=== PATIENT | female | born 1970 | race American Indian/Alaskan Native ===

== ENCOUNTER 2020-10-01 10:32 | Emergency (ER) | payer OTHER ==
[2020-10-01] MEDS ORDERED: SODIUM CHLORIDE 0.9% 1000 ML 1,000 ML IV ONE (11:02)
[2020-10-01] MEDS ORDERED: LIDOCAINE 2%/EPINEPHRINE 1:100,000 VIAL (20 ML) INFILTRATI ONE (11:09)
--- NOTE | 2020-10-01 11:12 | Emergency Department Report ---
ED General Adult HPI - General Chief complaint: Altered Mental Status Stated complaint: STROKE PUI?: No Time Seen by Provider: 10/01/20 10:48 Source: patient, EMS ( EMS documentation not available at time of chart dictati on ), RN notes reviewed Mode of arrival: Stretcher Limitations: Altered Mental Status, Physical Limitation - History of Present Illness Initial comments: The patient was evaluated in the emergency department for symptoms described in the history of present illness. He/she was evaluated in the context of the global COVID-19 pandemic, which necessitated consideration that the patient might be at risk for infection with the virus that causes COVID-19. Institutional protocols and algorithms that pertain to the evaluation of patients at risk for COVID-19 are in a state of rapid change based on information released by regulatory bodies including the CDC and federal and state organizations. These policies and algorithms were followed during the patient's care in the emergency department. Please note that these policies, procedures and recommendations changed on a rapid basis. During the entire history and physical examination, I am chaperoned by nurse NUNO DELGADO This is a 50-year-old female. She is brought to the hospital by emergency medical services. History entirely obtained from EMS. EMS verbally reports the patient presents today because of weakness. Her last known well time is over 48 hours ago, as per EMS, who reports this is the information received from the patient's family. The patient also reportedly has altered mental status, and right-sided weakness. As per review of a discharge summary/report from [facility], discharge diagnoses include ascites, peritonitis, fracture, pathologic of the humerus, hypoalbuminemia, edema of bilateral lower extremities, metastatic colon cancer, hereditary nonpolyposis colon cancer, h ypertension, anemia, biliary obstruction, pancreatic mass, abdominal pain, chronic, generalized, chronic nausea, constipation and sinus tachycardia. The patient is not accompanied by friends or family at this time for additional information or collateral information. The patient follows some commands. The patient is not able to tell me why she is here. The patient indicates that she is having abdominal pain. The patient follows commands. Because of her weakness and altered mental status, the patient is not able to describe the qualitative nature of her symptoms, exacerbating factors, relieving factors, aggravating factors, etc. -: days(s) Quality: other Consistency: other Improves with: other Worsens with: other Associated Symptoms: other - Related Data Allergies Allergy/AdvReac Type Severity Reaction Status Date / Time No Known Allergies Allergy Verified 10/01/20 12:02 ED Review of Systems ROS: Stated complaint: STROKE Other details as noted in HPI Comment: Unobtainable due to pts medical conditions ED Physical Exam - General Limitations: Altered Mental Status, Physical Limitation General appearance: obese, other (The patient is awake. The patient follows commands.) - Head Head exam: Present: atraumatic, normocephalic - Eye Eye exam: Present: normal appearance, EOMI - ENT ENT exam: Present: normal exam, mucous membranes moist, normal external ear exam - Neck Neck exam: Present: normal inspection, full ROM. Absent: tenderness, meningismus - Respiratory Respiratory exam: Present: decreased breath sounds. Absent: respiratory distress, wheezes, rales, rhonchi, stridor - Cardiovascular Cardiovascular Exam: Present: regular rate, normal rhythm, tachycardia, normal heart sounds. Absent: bradycardia, irregular rhythm, systolic murmur, diastolic murmur, rubs, gallop - GI/Abdominal GI/Abdominal exam: Present: soft, distended, tenderness, other (There is a jejunal drain noted. There is an ostomy noted on the epigastric region.). Abs ent: guarding, rebound, rigid, pulsatile mass - Rectal Rectal exam: Present: normal inspection, normal rectal tone, heme (-) stool, other (Chaperoned by NUNO DELGADO) - Extremities Exam Extremities exam: Present: normal inspection, pedal edema (3-4+ edema in the bilateral lower extremities), other (2+ pulses noted in the bilateral radial distributions. 1+ pulses appreciated in the bilateral dorsalis pedis distrib ution. Lower extremity pulse exam limited by gross edema) - Back Exam Back exam: Present: normal inspection. Absent: tenderness, CVA tenderness (R), CVA tenderness (L), paraspinal tenderness, vertebral tenderness - Neurological Exam Neurological exam: Present: altered (The patient is awake. The patient moves 4 extremities. There is no facial droop. Patient is minimally verbal.), other (Sensation is intact to light touch in 4 extremities. 4 out of 5 strength left arm, left leg. 3 out of 5 strength right arm, right leg.) - Skin Skin exam: Present: warm, dry, intact, normal color. Absent: rash ED Course Vital Signs 10/01/20 10/01/20 10/01/20 10:52 11:00 11:40 Temperature 98.7 F Pulse Rate 120 H 103 H Respiratory 12 9 L Rate Blood Pressure Blood Pressure 99/71 [Right] O2 Sat by Pulse 99 99 Oximetry 10/01/20 10/01/20 10/01/20 11:45 12:00 12:17 Temperature Pulse Rate 118 H 121 H Respiratory 7 L 8 L Rate Blood Pressure 98/65 107/66 107/66 Blood Pressure [Right] O2 Sat by Pulse 100 99 100 Oximetry 10/01/20 10/01/20 10/01/20 12:30 12:45 13:00 Temperature Pulse Rate 122 H 134 H 122 H Respiratory 7 L 15 8 L Rate Blood Pressure 112/71 107/66 111/68 Blood Pressure [Right] O2 Sat by Pulse 100 97 99 Oximetry 10/01/20 10/01/20 10/01/20 13:15 13:30 13:45 Temperature Pulse Rate 119 H 120 H 125 H Respiratory 7 L 7 L 14 Rate Blood Pressure 111/68 101/68 111/68 Blood Pressure [Right] O2 Sat by Pulse 100 99 100 Oximetry 10/01/20 10/01/20 10/01/20 14:00 14:15 14:30 Temperature Pulse Rate 128 H 122 H 124 H Respiratory 17 9 L 8 L Rate Blood Pressure 104/37 107/73 114/76 Blood Pressure [Right] O2 Sat by Pulse 100 100 100 Oximetry 10/01/20 10/01/20 10/01/20 14:45 15:00 15:15 Temperature Pulse Rate 125 H 122 H 124 H Respiratory 8 L 9 L 8 L Rate Blood Pressure 104/37 115/70 115/70 Blood Pressure [Right] O2 Sat by Pulse 99 99 100 Oximetry 10/01/20 10/01/20 10/01/20 15:30 15:45 16:00 Temperature Pulse Rate 126 H 127 H 126 H Respiratory 9 L 10 L 8 L Rate Blood Pressure 111/71 111/71 107/69 Blood Pressure [Right] O2 Sat by Pulse 100 98 100 Oximetry 10/01/20 10/01/20 10/01/20 16:15 16:30 16:45 Temperature Pulse Rate 127 H 125 H 125 H Respiratory 8 L 9 L 8 L Rate Blood Pressure 107/69 105/68 105/68 Blood Pressure [Right] O2 Sat by Pulse 100 100 100 Oximetry - Reevaluation(s) Reevaluation #1: 10/01/20 11:23 Differential diagnosis, including but not limited to: Bacteremia, viremia, pneumonia, urinary tract infection, peritonitis Assessment and plan: 50-year-old female with weakness, altered mental status, last known well time approximately 48 hours ago, tachycardic and hypotensive, with lower extremity edema, ascites, mild diffuse abdominal tenderness. We have requested patient's old medical records from [facility]. Family has given consent for this over the phone with the nurse, and I have emergently and administratively consented the patient for this as well. CT scan of the brain, abdomen pelvis will be obtained. Appropriate laboratory studies will be obtained. Registration is trying to ascertain if patient is a [facility] patient. We will reassess after initial diagnostics have resulted. Patient will require fluid resuscitation, but is also demonstrating evidence of gross lower extremity edema. Consider paracentesis if initial diagnostics are nondiagnostic. Reevaluation #2: 10/01/20 11:42 colon ca, winter colectomy, on chemo ( keytruda), biliary drain fell out and was replaced, known lower ext edema, biliARY stent, ascites, pathologic fracture of right humerus also has endo metrial cancer additional history as per Dr Odalis Keen of [facility] patient is a [facility] [place] patient [facility] to [facility] end of august Reevaluation #3: 10/01/20 12:47 Laboratory studies demonstrate hyponatremia, most likely hypovolemic hyponatremia. Anemia appreciated, may be anemia of chronic disease. Di fferential is pending. Patient also found to be hypokalemic. X-ray of the chest reviewed and appreciated. CT scan of the brain, abdomen pelvis pending. Urinalysis pending. Reevaluation #4: 10/01/20 13:35 CT scan of the brain shows no acute intracranial findings. Metastatic lesions in the bony structures versus lymphoma are suggested. CT scan abdomen pelvis demonstrates known biliary stent, known pancreatic mass, known ascites, and pathologic lesions in the bony anatomy. INR elevated, PT elevated, l therefore, relative contraindication to paracentesis. Contacted [facility] physician, Dr. Maribell Keen, coordinator, we discussed the patient's history, physical, imaging studies and laboratory studies. Agrees with plan to withhold paracentesis at this time. For continuity of care, patient will be transferred back to [facility], with Dr. Simona Rendon will be the accepting physician. If however, there is a delay in acquiring a bed, the aforementioned physician, Dr. Keen, will authorize the patient to be temporarily admitted to this facility. 10/01/20 13:36 Reevaluation #5: 10/01/20 16:14 Vital signs are essentially unchanged. Patient awake, and will occasionally follow commands. She is protecting her airway. I have recontacted Dr. Keen, and the [facility] hub. She states they are trying to arrange a bed at [facility]. I have requested that the [facility] team expedite this process, so that the patient may continue continuity of care. I have also offered to admit the patient to this hospital, to our medical service, pending their bed availability, however, [facility] declines at this time, they will get back to me with a follow-up by 6:00 PM today. ED Medical Decision Making - Lab Data Result diagrams: 10/01/20 11:42 10/01/20 11:42 Vital Signs 10/01/20 10:52 Pulse Rate 120 H Respiratory 12 Rate Blood Pressure 99/71 [Right] O2 Sat by Pulse 99 Oximetry Rectal temperature was 98.6 degrees. - EKG Data EKG shows normal: sinus rhythm Rate: tachycardia - EKG Data When compared to previous EKG there are: previous EKG unavailable 10/01/20 12:29 Sinus rhythm, tachycardia, 120 bpm, normal axis, QTC 436 ms, low voltage, the EKG is abnormal. There is no prior for comparison. This EKG is not a STEMI. - Radiology Data Radiology results: report reviewed, image reviewed Print Report Referring Physician: JAKOB BAIRES Patient Name: GAURI SAHNI Date of : 1970 Sex: Female Report Date: 2020-10-01 Report Status: Finalized Findings [address] [address] XRay Report Signed Patient: GAURI SAHNI MR#: [id number] 3 : 1970 Acct:[id number] Age/Sex: 50 / F ADM Date: 10/01/20 Loc: ED Attending Dr: Ordering Physician: JAKOB BAIRES MD Date of Service: 10/01/20 Procedure(s): XR chest 1V ap Accession Number(s): [id number] cc: JAKOB BAIRES MD Fluoro Time In Minutes: CHEST 1 VIEW 10/01/2020 10:38 AM INDICATION / CLINICAL INFORMATION: Altered Mental Status. COMPARISON: None available. FINDINGS: SUPP ORT DEVICES: None. HEART / MEDIASTINUM: No significant abnormality. LUNGS / PLEURA: There are patchy bilateral pulmonary opacities. No pneumothorax. ADDITIONAL FINDINGS: There is an abnormal appearance of the proximal right humerus, with apparent destructive lesion in the proximal right humerus and associated periosteal reaction. IMPRESSION: 1. Patchy bilateral pulmonary opacities which may reflect developing infectious process. 2. Significantly abnormal appearance of the proximal right humerus concerning for possible bone lesion. Dedicated right humeral radiographs are recommended for further evaluation characterization. Signer Name: Luis Nickerson MD Signed: 10/01/2020 11:41 AM Workstation Name: [id number] Transcribed By: KERRI Dictated By: Luis Nickerson MD Electronically Authenticated By: Luis Nickerson MD Signed Date/Time: 10/01/20 1141 DD/ 1139 TD/TT: Report Referring Physician: JAKOB BAIRES Patient Name: GAURI SAHNI Date of : 1970 Sex: Female Report Date: 2020-10-01 Report Status: [place] [address] Cat Scan Report Signed Patient: GAURI SAHNI MR#: [id number] 3 : 1970 Acct:[id number] Age/Sex: 50 / F ADM Date: 10/01/20 Loc: ED Attending Dr: Ordering Physician: JAKOB BAIRES MD Date of Service: 10/01/20 Procedure(s): CT abdomen pelvis wo con Accession Number(s): [id number] cc: JAKOB BAIRES MD CT abdomen pelvis wo con INDICATION: abd pain ams distension, ascites. TECHNIQUE: All CT scans at this location are performed using CT dose reduction for ALARA by means of automated exposure control. COMPARISON: None available. FINDINGS: Moderate-sized left pleural effusion. No acute disease in the lung bases. Exam is technically suboptimal because of patient arm position, motion and lack of contrast. There is considerable ascites around the liver and spleen. Liver is small and probably cirrhotic. Gallbladder is filled with contrast. Biliary stent extends from the common duct into the duodenum. There also appears to be a stent in the duodenum. On this noncontrast exam, there appears to be a large, ill-defined mass involving the pancreatic head and adjacent structures, with dilatation of the pancreatic duct in the tail. Spleen is negative. Kidneys appear unremarkable, but there are thought to be bilateral adrenal masses, measuring approximately 3.7 cm on the left and as much as 6.5 cm on the right. The left adrenal mass is mostly solid. Right-sided mass contains areas of low attenuation, probably fat. There is abnormal soft tissue density in the left periaortic region, most likely adenopathy. Tissue definition is simply not adequate to evaluate for periportal adenopathy. Pelvis Extensive ascites. Bladder is mildly distended but otherwise negative. No definite pelvic adenopathy. A mixed lytic and destructive lesion involves the right posterior acetabulum, extending into the ischium. I see no additional skeletal lesions. IMPRESSION: 1. Large, ill-defined mass in the region of the pancreatic head and periportal region. 2. Biliary stent (and apparent duodenal stent) are in position. 3. Extensive ascites in the abdomen and pelvis. 4. Bilateral adrenal masses. 5. The presence of a biliary stent indicates there is considerable clinical information which is not available for interpretation of this exam. Signer Name: Hector Ivan MD Signed: 10/01/2020 12:56 PM Workstation Name: [id number] Transcribed By: TM Dictated By: Hector Ivan MD Electronically Authenticated By: Hector Ivan MD Signed Date/Time: 10/01/20 1256 DD/ 1243 TD/TT: Print Report Referring Physician: JAKOB BAIRES Patient Name: GAURI SAHNI Date of : 1970 Sex: Female Report Date: 2020-10-01 Report Status: Finalized Findings [facility] [address] [place] [address] Cat Scan Report Signed Patient: GAURI SAHNI MR#: [id number] 3 : 1970 Acct:[id number] Age/Sex: 50 / F ADM Date: 10/01/20 Loc: ED Attending Dr: Ordering Physician: JAKOB BAIRES MD Date of Service: 10/01/20 Procedure(s): CT head/brain wo con Accession Number(s): [id number] cc: JAKOB BAIRES MD NONENHANCED CT SCAN OF THE HEAD: INDICATION / CLINICAL INFORMATION: 50 years Female; Altered Mental Status. TECHNIQUE: Routine CT head without contrast. All CT scans at this location are performed using CT dose reduction for ALARA by means of automated exposure control. COMPARISON: None. FINDINGS: BRAIN / INTRACRANIAL CONTENTS: No acute hemorrhage, mass effect, midline shift, hydrocephalus, or acute, large territorial infarct. No chronic infarct or focal atrophy. Normal brain volume and ventricular/sulcal size for age. No significant white matter abnormality. CALVARIUM: Generalized expansion of the diploic space Sickle cell disease; 2 distinct calvarial infiltrative lesions along with the soft tissue thickening intracranially as well as extracranially; given the findings in the abdominal CT scan, these are metastatic lesions. Lymphoma is another possibility CRANIOCERVICAL JUNCTION: No significant abnormality. ORBITS: No significant abnormality of visualized orbits. SINUSES / MASTOIDS: No significant abnormality of the visualized paranasal sinuses or mastoid air cells. ADDITIONAL FINDINGS: None. IMPRESSION: Normal brain parenchyma 2 distinctly separate calvarial lesions; metastases; other consideration is lymphoma Signer Name: Cedric Monge MD Signed: 10/01/2020 12:57 PM Workstation Name: [id number] Transcribed By: BS Dictated By: Cderic Morton MD Electronically Authenticated By: Cedric Morton MD Signed Date/Time: 10/01/20 1257 DD/ 1242 TD/TT: Critical Care Time: Yes Critical care time in (mins) excluding proc time.: 35 Critical care attestation.: If time is entered above; I have spent that time in minutes in the direct care of this critically ill patient, excluding procedure time. ED Disposition Clinical Impression: Hyponatremia, Hypokalemia, Edema, Altered mental status, Hypoalbuminemia, Abdominal pain, Pathologic fracture of humerus, History of colon cancer [id number] Is pt being admited?: No Does the pt Need Aspirin: No Condition: Serious Referrals: PRIMARY CARE, [Primary Care Provider] - 3-5 Days
--- NOTE | 2020-10-01 11:45 | XRay Report ---
CHEST 1 VIEW 10/01/2020 10:38 AM INDICATION / CLINICAL INFORMATION: Altered Mental Status. COMPARISON: None available. FINDINGS: SUPPORT DEVICES: None. HEART / MEDIASTINUM: No significant abnormality. LUNGS / PLEURA: There are patchy bilateral pulmonary opacities. No pneumothorax. ADDITIONAL FINDINGS: There is an abnormal appearance of the proximal right humerus, with apparent kodi tructive lesion in the proximal right humerus and associated periosteal reaction. IMPRESSION: 1. Patchy bilateral pulmonary opacities which may reflect developing infectious process. 2. Significantly abnormal appearance of the proximal right humerus concerning for possible bone lesio n. Dedicated right humeral radiographs are recommended for further evaluation characterization. Signer Name: Luis Nickerson MD Signed: 10/01/2020 11:41 AM Workstation Name: [id number]
[2020-10-01] MEDS ORDERED: cefTRIAXone/NS 2 GM/100 ML 2 GM/100 ML BAG IV SCH (12:15)
[2020-10-01 12:28] LABS: Hematocrit 29.1 % (30.3-42.9); Hemoglobin 9.4 gm/dl (10.1-14.3); Mean Corpuscular HGB Conc 32 % (30-34); Mean Corpuscular Volume 79 fl (79-97); Platelet Count 415 K/mm3 (140-440); Red Cell Distribution Width 24.8 % (13.2-15.2)
[2020-10-01 12:43] LABS: Albumin 2.2 g/dL (3.9-5); Calcium 8.1 mg/dL (8.4-10.2)
[2020-10-01 12:50] LABS: INR 1.79 (0.87-1.13)
--- NOTE | 2020-10-01 13:01 | Cat Scan Report ---
CT abdomen pelvis wo con INDICATION: abd pain ams distension, ascites. TECHNIQUE: All CT scans at this location are performed using CT dose reduction for ALARA by means of automated e xposure control. COMPARISON: None available. FINDINGS: Moderate-sized left pleural effusion. No acute disease in the lung bases. Exam is technically suboptimal because of patient arm position, motion and lack of contrast. There is considerable ascites around the liver and spleen. Liver is small and probably cirrhotic. Gal lbladder is filled with contrast. Biliary stent extends from the common duct into the duodenum. There also appears to be a stent in the duodenum. On this noncontrast exam, there appears to be a large, i ll-defined mass involving the pancreatic head and adjacent structures, with dilatation of the pancrea tic duct in the tail. Spleen is negative. Kidneys appear unremarkable, but there are thought to be bilateral adrenal masses , measuring approximately 3.7 cm on the left and as much as 6.5 cm on the right. The left adrenal mas s is mostly solid. Right-sided mass contains areas of low attenuation, probably fat. There is abnorma l soft tissue density in the left periaortic region, most likely adenopathy. Tissue definition is sim ply not adequate to evaluate for periportal adenopathy. Pelvis Extensive ascites. Bladder is mildly distended but otherwise negative. No definite pelvic adenopathy. A mixed lytic and destructive lesion involves the right posterior acetabulum, extending into the isch ium. I see no additional skeletal lesions. IMPRESSION: 1. Large, ill-defined mass in the region of the pancreatic head and periportal region. 2. Biliary stent (and apparent duodenal stent) are in position. 3. Extensive ascites in the abdomen and pelvis. 4. Bilateral adrenal masses. 5. The presence of a biliary stent indicates there is considerable clinical information which is not available for interpretation of this exam. Signer Name: Hector Ivan MD Signed: 10/01/2020 12:56 PM Workstation Name: [id number]
--- NOTE | 2020-10-01 13:02 | Cat Scan Report ---
NONENHANCED CT SCAN OF THE HEAD: INDICATION / CLINICAL INFORMATION: 50 years Female; Altered Mental Status. TECHNIQUE: Routine CT head without contrast. All CT scans at this location are performed using CT dos e reduction for ALARA by means of automated exposure control. COMPARISON: None. FINDINGS: BRAIN / INTRACRANIAL CONTENTS: No acute hemorrhage, mass effect, midline shift, hydrocephalus, or acu te, large territorial infarct. No chronic infarct or focal atrophy. Normal brain volume and ventricul ar/sulcal size for age. No significant white matter abnormality. CALVARIUM: Generalized expansion of the diploic space Sickle cell disease; 2 distinct calvarial infi ltrative lesions along with the soft tissue thickening intracranially as well as extracranially; give n the findings in the abdominal CT scan, these are metastatic lesions. Lymphoma is another possibilit y CRANIOCERVICAL JUNCTION: No significant abnormality. ORBITS: No significant abnormality of visualized orbits. SINUSES / MASTOIDS: No significant abnormality of the visualized paranasal sinuses or mastoid air prakash ls. ADDITIONAL FINDINGS: None. IMPRESSION: Normal brain parenchyma 2 distinctly separate calvarial lesions; metastases; other consideration is lymphoma Signer Name: Cedric Monge MD Signed: 10/01/2020 12:57 PM Workstation Name: [id number]
[2020-10-01 13:03] LABS: Anisocytosis 2+; Band Neutrophils # (Manual) 0.2 K/mm3; Basophils % (Manual) 0 % (0.0-1.8); Eosinophils % (Manual) 0 % (0.0-4.3); Hypochromasia 1+; Total Cells Counted 100
[2020-10-01 13:04] LABS: Platelet Estimate Consistent w Auto; Poikilocytosis Few
[2020-10-01 13:40] LABS: Bacteria,Urine 1+ /HPF (Negative); Bilirubin,Urine NEG (Negative); Blood,Urine SM (Negative); Color,Urine Amber (Yellow)
[2020-10-01] MEDS ORDERED: POVIDONE-IODINE OINTMENT 28.35 GM TP SCH (14:00)
[2020-10-01] MEDS ORDERED: MORPHINE 4 MG/1 ML INJ IV ONE (14:07)
[2020-10-01 16:55] VITALS: BP 105/68
== END 2020-10-01 17:55 | disposition short-term general hospital (02) ==
LOC: ED 10:32
DX: S42.301A Unspecified fracture of shaft of humerus, right arm, initial encounter for closed fracture (principal); E87.1 Hypo-osmolality and hyponatremia; E87.6 Hypokalemia; R60.9 Edema, unspecified; E88.09 Other disorders of plasma-protein metabolism, not elsewhere classified; X58.XXXA Exposure to other specified factors, initial encounter; Y93.89 Activity, other specified; Y92.89 Other specified places as the place of occurrence of the external cause; Y99.8 Other external cause status
CPT/HCPCS: 36415; 70450; 71045; 74176; 80053; 81001; 82140; 82550; 83735; 84443; 84484; 85007; 85025; 85610; 85730; 87040; 87086; 93005; 96365; 99291; J0696; J7030; 80320; G0480